=== PATIENT | male | born 1965 | race Caucasian/White ===

== ENCOUNTER 2021-04-13 20:02 | Inpatient (IN) | payer OTHER ==
[~2021-04-13] VITALS: Ht 188 cm; Wt 104.3 kg
[2021-04-14 03:15] LABS: HEMOGLOBIN 16.3 gm/dl (14.0-17.5); RED BLOOD COUNT 5.47 M/UL (4.20-5.50); WHITE BLOOD COUNT 9.5 K/UL (4.5-11.0)
[2021-04-14 03:45] LABS: BUN/CREATININE RATIO 12 (0-10)
--- NOTE | 2021-04-14 18:03 | NUR ---
PATIENT RETURNED TO FLOOR FROM PACU AT THIS TIME. PATIENT IS ALERT, VERBAL, AND ORIENTED TO PERSON, PLACE, TIME, AND SITUATION. PEG CECOSTOMY TUBE IN PLACE NOTED TO RIGHT LOWER ABD, COLLECTION BAG NOTED TO BEDSIDE WITH DRAINAGE BY GRAVITY. LIQUID STOOL NOTED IN COLLECTION BAG. DRESSING IN PLACE AROUND TUBE, CLEAN, DRY, AND INTACT. CALL FRIED IN [facility] [facility].
[2021-04-16 09:13] LABS: HEMOGLOBIN 15.3 gm/dl (14.0-17.5); RED BLOOD COUNT 5.04 M/UL (4.20-5.50); WHITE BLOOD COUNT 10.3 K/UL (4.5-11.0)
[2021-04-16 09:36] LABS: BUN/CREATININE RATIO 12 (0-10)
[2021-04-17 04:38] LABS: HEMOGLOBIN 14.9 gm/dl (14.0-17.5); RED BLOOD COUNT 4.89 M/UL (4.20-5.50); WHITE BLOOD COUNT 9.7 K/UL (4.5-11.0)
[2021-04-17 05:01] LABS: BUN/CREATININE RATIO 14 (0-10)
[2021-04-18 06:33] LABS: HEMOGLOBIN 13.4 gm/dl (14.0-17.5); RED BLOOD COUNT 4.47 M/UL (4.20-5.50); WHITE BLOOD COUNT 8.2 K/UL (4.5-11.0)
[2021-04-18 06:49] LABS: BUN/CREATININE RATIO 16 (0-10)
[2021-04-19 04:22] LABS: HEMOGLOBIN 13.5 gm/dl (14.0-17.5); RED BLOOD COUNT 4.54 M/UL (4.20-5.50); WHITE BLOOD COUNT 10.2 K/UL (4.5-11.0)
[2021-04-19 04:40] LABS: BUN/CREATININE RATIO 19 (0-10)
[2021-04-20 02:08] LABS: HEMOGLOBIN 13.6 gm/dl (14.0-17.5); RED BLOOD COUNT 4.55 M/UL (4.20-5.50); WHITE BLOOD COUNT 10.6 K/UL (4.5-11.0)
[2021-04-20 02:28] LABS: BUN/CREATININE RATIO 15 (0-10)
== END 2021-04-20 12:48 | disposition home or self-care (01) | DRG 330 ==
LOC: MED SURG 4 20:02
PROVIDERS: Internal Medicine; Surgery; ADMIT Internal Medicine
PROC: 0D9H0ZZ Drainage of Cecum, Open Approach (ICD-10-PCS; 2021-04-14)
PROC: 0D1M4ZP Bypass Descending Colon to Rectum, Percutaneous Endoscopic Approach (ICD-10-PCS; 2021-04-17)
PROC: 0DTN4ZZ Resection of Sigmoid Colon, Percutaneous Endoscopic Approach (ICD-10-PCS; principal; 2021-04-17 08:50)
DX: C18.9 Malignant neoplasm of colon, unspecified (principal); K56.699 Other intestinal obstruction unspecified as to partial versus complete obstruction; D62 Acute posthemorrhagic anemia; Z20.822 Contact with and (suspected) exposure to COVID-19; Z85.3 Personal history of malignant neoplasm of breast
CPT/HCPCS: 36415; 80048; 80053; 82378; 83605; 83735; 85018; 85025; 85027; 86850; 86900; 86901; 87040; 88341; 88342; C9113; J0690; J0696; J1100; J2001; J2250; J2270; J2405; J2543; J2704; J2710; J3010; J7030; J7070; J7120; U0002

== ENCOUNTER 2021-04-22 17:16 | Emergency (ER) | payer OTHER ==
[2021-04-22 18:50] LABS: HEMOGLOBIN 15.1 gm/dl (14.0-17.5); WHITE BLOOD COUNT 8.7 K/UL (4.5-11.0)
[2021-04-22 18:52] LABS: RED BLOOD COUNT 5.09 M/UL (4.20-5.50)
[2021-04-22 19:08] LABS: BUN/CREATININE RATIO 12 (0-10)
[2021-04-22] MEDS ORDERED: BENTYL 20MG TAB20 MG PO (22:59)
[2021-04-22] MEDS ORDERED: ZOFRAN ODT 4 MG4 MG PO (22:59)
== END 2021-04-22 23:30 | disposition home or self-care (01) ==
LOC: ER1 17:16
PROVIDERS: Physician Assistant
DX: G89.18 Other acute postprocedural pain (principal); R10.84 Generalized abdominal pain; Z93.3 Colostomy status; F17.220 Nicotine dependence, chewing tobacco, uncomplicated
CPT/HCPCS: 80053; 83605; 83690; 85025; 96374; 96375; 96376; 99284; J2270; J2405; J7030; Q9967

== ENCOUNTER 2021-04-30 17:10 | Emergency (ER) | payer OTHER ==
[~2021-04-30 17:10] MED LIST: BENTYL 20MG TAB20 MG PO; ZOFRAN ODT 4 MG4 MG PO
[2021-04-30 18:52] LABS: HEMOGLOBIN 13.7 gm/dl (14.0-17.5); RED BLOOD COUNT 4.69 M/UL (4.20-5.50); WHITE BLOOD COUNT 9.6 K/UL (4.5-11.0)
[2021-04-30 19:11] LABS: BUN/CREATININE RATIO 12 (0-10)
== END 2021-04-30 20:56 | disposition home or self-care (01) ==
LOC: ER1 17:10
PROVIDERS: Physician Assistant
DX: K94.01 Colostomy hemorrhage (principal); G89.29 Other chronic pain; R10.9 Unspecified abdominal pain; C18.9 Malignant neoplasm of colon, unspecified; F17.220 Nicotine dependence, chewing tobacco, uncomplicated
CPT/HCPCS: 71045; 80053; 81001; 82272; 82550; 82553; 83605; 83690; 83874; 84484; 85025; 87040; 96374; 96375; 99284; J1170; J2405; Q9967

== ENCOUNTER → 2021-05-25 | Day surgery (SDC) | payer OTHER | END | disposition home or self-care (01) | LOC: OR 05:22 | DX: C18.7 Malignant neoplasm of sigmoid colon (principal); Z20.822 Contact with and (suspected) exposure to COVID-19 | CPT/HCPCS: 71045; 76000; 77001; C1769; C1788; J0690; J1100; J1642; J2001; J2250; J2405; J2704; J3010; J7040; J7120 ==

== ENCOUNTER → 2021-06-12 | Day surgery (SDC) | payer OTHER | END | disposition home or self-care (01) | LOC: OR 06:01 | DX: D12.4 Benign neoplasm of descending colon (principal); C18.7 Malignant neoplasm of sigmoid colon; Z20.822 Contact with and (suspected) exposure to COVID-19; Z90.49 Acquired absence of other specified parts of digestive tract | CPT/HCPCS: J2704; J7120 ==

== ENCOUNTER → 2021-06-16 | Outpatient (CLI) | payer OTHER | LOC: CT 12:34 | DX: R93.2 Abnormal findings on diagnostic imaging of liver and biliary tract (principal) | CPT/HCPCS: 74160; Q9967 ==

== ENCOUNTER 2021-07-19 13:14 | Inpatient (IN) | payer OTHER ==
[~2021-07-19] VITALS: Ht 188 cm; Wt 98.9 kg
[2021-07-19 15:08] LABS: HEMOGLOBIN 16.1 gm/dl (14.0-17.5); RED BLOOD COUNT 5.28 M/UL (4.20-5.50); WHITE BLOOD COUNT 7.8 K/UL (4.5-11.0)
[2021-07-19 15:30] LABS: BUN/CREATININE RATIO 9 (0-10)
[2021-07-19] MEDS ORDERED: POTASSIUM CHLO20 ME2 PO (17:39)
[2021-07-19] MEDS ORDERED: AMOX TR-K CLV1 EAC4 PO (17:40)
[2021-07-19] MEDS ORDERED: ONDANSETRON ODT4 MG PO (17:41)
[2021-07-19 19:25] LABS: ADENOVIRUS F 40/41 Not Detected (Negative); ASTROVIRUS Not Detected (Negative); CAMPYLOBACTER Not Detected (Negative); CLOSTRIDIUM DIFFICILE TOX A/B Not Detected (Negative); CRYPTOSPORIDIUM Not Detected (Negative); E.COLI 0157 Not Detected (Negative); ENTAMOEBA HISTOLYTICA Not Detected (Negative); ENTEROAGGREGATIVE E.COLI (EAEC Not Detected (Negative); ENTEROPATHOGENIC E.COLI (EPEC) Not Detected (Negative); ENTEROTOXIGENIC E.COLI (ETEC) Not Detected (Negative); GIARDIA LAMBLIA Not Detected (Negative); NOROVIRUS GI/GII Not Detected (Negative); PLESIOMONAS SHIGELLOIDES Not Detected (Negative); ROTOVIRUS A Not Detected (Negative); SALMONELLA Not Detected (Negative); SAPOVIRUS Not Detected (Negative); SHIG/ENTEROINVAS.ECOLI (EIEC) Not Detected (Negative); SHIGA-LIK TOX.PRO.E.COLI (STEC Not Detected (Negative); VIBRIO Not Detected (Negative); VIBRIO CHOLERAE Not Detected (Negative); YERSINIA ENTEROCOLITICA Not Detected (Negative)
[2021-07-20 03:35] LABS: WHITE BLOOD COUNT 6.1 K/UL (4.5-11.0)
[2021-07-20 03:38] LABS: HEMOGLOBIN 13.8 gm/dl (14.0-17.5); RED BLOOD COUNT 4.63 M/UL (4.20-5.50)
[2021-07-20 03:52] LABS: BUN/CREATININE RATIO 8 (0-10)
[2021-07-21 05:08] LABS: HBSAG SCREEN Negative (Negative); HEP A AB, IGM Negative (Negative); HEP B CORE AB, IGM Negative (Negative); HEP C VIRUS AB <0.1 (0.0-0.9)
[2021-07-21 06:01] LABS: HEMOGLOBIN 14.2 gm/dl (14.0-17.5); RED BLOOD COUNT 4.74 M/UL (4.20-5.50); WHITE BLOOD COUNT 7.1 K/UL (4.5-11.0)
[2021-07-21 06:21] LABS: BUN/CREATININE RATIO 7 (0-10)
== END 2021-07-21 12:45 | disposition home health service (06) | DRG 394 ==
LOC: ER1 13:14 → CDU 16:14 → M/S 17:13
PROVIDERS: Emergency Medicine; Physician Assistant Medical; ADMIT Internal Medicine
DX: K52.1 Toxic gastroenteritis and colitis (principal); C18.7 Malignant neoplasm of sigmoid colon; T45.1X5A Adverse effect of antineoplastic and immunosuppressive drugs, initial encounter; K76.9 Liver disease, unspecified; R63.4 Abnormal weight loss; Z20.822 Contact with and (suspected) exposure to COVID-19; G62.9 Polyneuropathy, unspecified; E87.6 Hypokalemia; Z98.890 Other specified postprocedural states; Z79.899 Other long term (current) drug therapy; Z68.28 Body mass index [BMI] 28.0-28.9, adult
CPT/HCPCS: 36415; 80048; 80053; 80074; 81001; 82550; 82553; 83605; 83690; 83874; 84132; 84484; 85025; 85027; 87040; 87507; 96374; 96375; 99285; J2270; J2405; J2543; Q9967; U0002

== ENCOUNTER 2021-07-26 19:04 | Inpatient (IN) | payer OTHER ==
[~2021-07-26] VITALS: Ht 188 cm; Wt 98.9 kg
[~2021-07-26 19:04] MED LIST changes: +AMOX TR-K CLV1 EAC4 PO; +ONDANSETRON ODT4 MG PO; +POTASSIUM CHLO20 ME2 PO
[2021-07-26 19:56] LABS: HEMOGLOBIN 14.4 gm/dl (14.0-17.5); RED BLOOD COUNT 4.95 M/UL (4.20-5.50); WHITE BLOOD COUNT 2.9 K/UL (4.5-11.0)
[2021-07-26 20:21] LABS: BUN/CREATININE RATIO 17 (0-10)
[2021-07-27 08:30] LABS: BUN/CREATININE RATIO 14 (0-10)
--- NOTE | 2021-07-27 14:11 | NUR ---
PATIENT IS NPO. PATIENT CHOSE TO EAT [employer] ALTHOUGH HE IS NPO. AWARE.
[2021-07-28 07:20] LABS: HEMOGLOBIN 14.1 gm/dl (14.0-17.5); RED BLOOD COUNT 4.63 M/UL (4.20-5.50)
[2021-07-28 07:27] LABS: WHITE BLOOD COUNT 4.4 K/UL (4.5-11.0)
[2021-07-28 07:31] LABS: BUN/CREATININE RATIO 9 (0-10)
== END 2021-07-28 17:11 | disposition home or self-care (01) | DRG 394 ==
LOC: ER1 19:04 → CDU 23:40 → M/S 23:40
PROVIDERS: Physician Assistant Medical; Student in an Organized Health Care Education/Training Program; ADMIT Internal Medicine
DX: K52.1 Toxic gastroenteritis and colitis (principal); C18.7 Malignant neoplasm of sigmoid colon; C78.7 Secondary malignant neoplasm of liver and intrahepatic bile duct; C79.89 Secondary malignant neoplasm of other specified sites; Z20.822 Contact with and (suspected) exposure to COVID-19; T45.1X5A Adverse effect of antineoplastic and immunosuppressive drugs, initial encounter; D70.9 Neutropenia, unspecified; Z98.890 Other specified postprocedural states; Z90.49 Acquired absence of other specified parts of digestive tract; Z80.3 Family history of malignant neoplasm of breast
CPT/HCPCS: 36415; 80048; 80053; 80061; 82550; 82553; 82746; 83690; 83735; 84100; 84439; 84443; 84484; 84550; 85025; 85027; 86140; 87449; 96374; 96375; 99285; C9113; J1650; J2270; J2405; J2543; J7030; J7120; U0002

== ENCOUNTER → 2021-11-01 | Outpatient (CLI) | payer OTHER | LOC: CT 13:07 | DX: C18.7 Malignant neoplasm of sigmoid colon (principal); Z90.49 Acquired absence of other specified parts of digestive tract | CPT/HCPCS: 71260; Q9967 ==

== ENCOUNTER → 2022-03-13 | Outpatient (CLI) | payer OTHER | LOC: SLEEP 12:25 | DX: D75.1 Secondary polycythemia (principal); G47.33 Obstructive sleep apnea (adult) (pediatric); G47.61 Periodic limb movement disorder | CPT/HCPCS: 95810 ==

== ENCOUNTER → 2022-04-20 | Outpatient (CLI) | payer OTHER | LOC: CT 10:48 | DX: C18.7 Malignant neoplasm of sigmoid colon (principal); Z51.11 Encounter for antineoplastic chemotherapy; K76.0 Fatty (change of) liver, not elsewhere classified ==